=== PATIENT | male | born 2000 | race Caucasian/White ===

== ENCOUNTER 2024-06-17 10:21 | Emergency (ER) | payer BC ==
[~2024-06-17] VITALS: Ht 172.7 cm; Wt 78.2 kg
[2024-06-17 10:26] VITALS: BP 135/72; PULSE 77; RESP 16; TEMP 98.2; O2SAT 99
[2024-06-17 11:31] VITALS: BP 135/72; PULSE 77; RESP 16; TEMP 98
== END 2024-06-17 11:32 | disposition home or self-care (01) ==
LOC: MED 10:21
DX: S30.1XXA Contusion of abdominal wall, initial encounter (principal); S80.11XA Contusion of right lower leg, initial encounter; S90.31XA Contusion of right foot, initial encounter; S80.212A Abrasion, left knee, initial encounter; V43.52XA Car driver injured in collision with other type car in traffic accident, initial encounter; Y93.89 Activity, other specified; Y92.89 Other specified places as the place of occurrence of the external cause; Y99.8 Other external cause status
CPT/HCPCS: 99284